=== PATIENT | male | born 1950 | race Caucasian/White ===

== ENCOUNTER 2023-08-12 11:03 | Day surgery (SDC) | payer MEDICARE ==
[~2023-08-12] VITALS: Ht 185.4 cm; Wt 115.5 kg
[2023-08-12] VITALS (13 sets, daily range): BP systolic 116–167; BP diastolic 64–84
[~2023-08-12 11:03] MED LIST: COQ1050 MG PO; GLIM2 PO; HYDCHL25 PO; KAPSPARGO SPRI100 MG PO; LOSA50 PO; METF500 PO; METO100ER PO; MONT10T PO; NIFE30ER PO; ROSU10TA PO; VITAMIN D310 MC4 PO; XYZAL5 MG PO
--- NOTE | 2023-08-12 12:23 | NUR ---
KNEE HIGH RITCHIE HOSE AND CALF PAS APPLIED TO RLE.
--- NOTE | 2023-08-12 16:56 | NUR ---
PT ARRIVED TO THE ROOM AT 1650. PT DENIES PAIN. PT IS STARTING TO BE ABLE TO WIGGLE HIS TOES. SPINAL ANESTHESIA SITE WNL. PT IS ALERT AND ORIENTED.
--- NOTE | 2023-08-12 20:23 | NUR ---
SHIFT SUMMARY PT IS POD#0 FROM L TKA WITH DR. ADAMS. PT'S SPINAL ANESTHESIA HAS RESOLVED, HE IS ABLE TO MOVE HIS BLE AND IS HAVING PAIN. OXYCODONE GIVEN FOR PAIN. PT TOLERATING PO. AWAITING POST OP VOID. BEDSIDE REPORT GIVEN TO [place].
[2023-08-13 00:05] VITALS: BP 163/88
--- NOTE | 2023-08-13 05:32 | NUR ---
SHIFT SUMMARY POD 1 L TKA PT ABLE TO REST DURING THE NIGHT. PAIN MANAGED PER EMAR. PT UP TO THE BATHROOM, VOIDING, PASSING GAS. HAD A BM TONIGHT. TOLERATING PO INTAKE. VSS. NO OTHER CONCERNS AT THIS TIME. CALL LIGHT WITHIN REACH
[2023-08-13 05:44] VITALS: BP 153/83
[2023-08-13 05:59] LABS: BASOPHILS ABSOLUTE AUTO 0.02 K/mm3 (0.00-0.23); BASOPHILS PERCENT AUTO 0 % (0-2); EOSINOPHILS ABSOLUTE AUTO 0.12 K/mm3 (0.00-0.68); EOSINOPHILS PERCENT AUTO 2 % (0-6); Hematocrit 36.5 % (37.0-53.0); IMMATURE GRAN ABSOLUTE AUTO 0.03 K/mm3 (0.00-0.10); IMMATURE GRAN PERCENT AUTO 0 % (0-1); LYMPHOCYTES ABSOLUTE AUTO 1.04 K/mm3 (0.84-5.20); LYMPHOCYTES PERCENT AUTO 13 % (21-46); MONOCYTES ABSOLUTE AUTO 0.73 K/mm3 (0.16-1.47); MONOCYTES PERCENT AUTO 9 % (4-13); Mean Corpuscular HGB 32.2 pg (26.0-34.0); Mean Corpuscular HGB Conc 35.6 g/dL (31.5-36.5); Mean Corpuscular Volume 90 fL (80-100); Mean Platelet Volume 10.7 fL (9.1-12.4); NEUTROPHILS ABSOLUTE AUTO 6.32 K/mm3 (1.96-9.15); NEUTROPHILS PERCENT AUTO 77 % (41-73); Platelet Count 160 K/mm3 (150-400); RDW Standard Deviation 39.4 fL (35.1-46.3); Red Blood Cell Count 4.04 M/mm3 (4.30-5.90); White Blood Cell Count 8.26 K/mm3 (4.00-11.30)
[2023-08-13 06:31] LABS: Bun/Creatinine Ratio 18.8 (12.0-20.0); Calcium, Blood 8.9 mg/dL (8.5-10.1); Creatinine, Blood 0.8 mg/dL (0.60-1.20)
[2023-08-13 06:53] VITALS: BP 146/79
[2023-08-13] MEDS ORDERED: ASPI81CH PO (09:00)
[2023-08-13] MEDS ORDERED: Percocet 5-3251 EACH PO (09:01)
--- NOTE | 2023-08-13 09:47 | NUR ---
DISCHARGE NOTE: PATIENT AND WERE EDUCATED ON DISCHARGE INSTRUCTIONS. BOTH VERBALIZED UNDERSTANDING OF INSTRUCTIONS AND HAD NO FURTHER QUESTIONS AT THIS TIME. HARD PERSCRIPTIONS WERE GIVEN TO . IV WAS TAKEN OUT AND WNL. PAIN IS MANAGED WITH ORAL PAIN MEDS. HIS LEFT KNEE HAS AN AQUACEL THAT IS C/D/I. DENIES NUMBNESS OR TINGLING. CAN MOVE ALL FINGERS AND TOES WHEN ASKED. PATIENT IS TOLERATING PO INTAKE AND IS VOIDING. HE IS DRESSED AND IS A SBA WITH FWW AND GAIT BELT. HE HAS ALL OF HIS PERSONAL BELONGINGS WITH HIM. HE WAS WHEELCHAIRED OUT TO HIS WIFES CAR TO BE TAKEN HOME.
--- NOTE | 2023-08-14 11:59 | NUR ---
08/14/23 1159 Sammie Sullivan VERIFICATIONS: EDIT CHART.
== END 2023-08-13 09:50 | disposition home or self-care (01) ==
LOC: ORSCMMR 11:03 → ORD 12:30 → SURS 16:36 → ORSCMMR 08-13 09:50
PROVIDERS: Orthopaedic Surgery
PROC: 0SRD0JA Replacement of Left Knee Joint with Synthetic Substitute, Uncemented, Open Approach (ICD-10-PCS; principal; 2023-08-12 12:30)
DX: M17.12 Unilateral primary osteoarthritis, left knee (principal); G47.33 Obstructive sleep apnea (adult) (pediatric); I10 Essential (primary) hypertension; E78.5 Hyperlipidemia, unspecified; E11.9 Type 2 diabetes mellitus without complications; Z95.0 Presence of cardiac pacemaker; Z79.84 Long term (current) use of oral hypoglycemic drugs; Z79.899 Other long term (current) drug therapy
CPT/HCPCS: 36415; 73560-LT; 80048; 82947; 85025; 97110; 97116; 97162; A9270; C1776; J0171; J0690; J0735; J1815; J1885; J2704; J2795; J3010; J7120